=== PATIENT | male | born 1980 | race African-American/Black ===

== ENCOUNTER 2017-12-20 22:23 | Emergency (ER) | payer OTHER ==
[~2017-12-20] VITALS: Ht 177.8 cm; Wt 68.0 kg
[2017-12-20] MEDS ORDERED: BIKTARVY 50-201 EACH PO (22:32)
[2017-12-20 22:45] VITALS: BP 121/78
--- NOTE | 2017-12-20 22:53 | Emergency Room Report ---
History of Present Illness General Chief Complaint: Chest Pain Source: Patient Present Illness HPI Is a 37-year-old male with no significant past medical history. He presents with chief complaint of chest pain is been ongoing for 2-3 days. Achy pain in left chest area. Also with some mild jaw pain and numbness to his left hand. Nothing made it better. Nothing made it worse. He when he lays back he felt throbbing pulsation in his neck. No fever chills. No nausea no vomiting. No diaphoresis but no exertional component. Pain is 5 out of 10. No chronic history in the family. Allergies: Coded Allergies: No Known Allergies (Unverified , 12/20/17) Patient History Past Medical History: see triage record, old chart reviewed Past Surgical History: none Pertinent Family History: none Social History: Denies: smoking Immunizations: other Reviewed Nursing Documentation: PMH: Agreed; PSxH: Agreed Nursing Documentation-PMH Past Medical History: No History, Except For Review of Systems Eye: Denies: eye pain, blurred vision ENT: Denies: ear pain, nose congestion, throat swelling Respiratory: Denies: cough, shortness of breath Cardiovascular: Reports: chest pain; Denies: palpitations Gastrointestinal: Denies: abdominal pain, diarrhea, nausea, vomiting Musculoskeletal: Denies: back pain, joint pain Skin: Denies: rash Neurological: Denies: headache, numbness Endocrine: Denies: increased thirst, increased urine Hematologic/Lymphatic: Denies: easy bruising All Other Systems: negative except mentioned in HPI Physical Exam Vital Signs Date Time Temp Pulse Resp B/P (MAP) Pulse Ox O2 Delivery O2 Flow Rate FiO2 12/20/17 22:26 98.6 93 16 122/77 95 Room Air 98.6 vitals normal Sp02 EP Interpretation: reviewed, normal General Appearance: well appearing, no apparent distress, alert Head: normocephalic, atraumatic Eyes: bilateral eye PERRL, bilateral eye EOMI ENT: hearing grossly normal, normal pharynx Neck: full range of motion, supple, no meningismus Respiratory: chest non-tender, lungs clear, normal breath sounds Cardiovascular #1: regular rate, rhythm, no murmur Gastrointestinal: normal bowel sounds, non tender, no mass, no organomegaly, no bruit, non-distended Musculoskeletal: back normal, gait/station normal, normal range of motion Psychiatric: mood/affect normal Skin: warm/dry Medical Decision Making Diagnostic Impression: Primary Impression: Chest pain Qualified Codes: R07.9 - Chest pain, unspecified ER Course Patient present with atypical chest pain. No evidence of ACS, PE, dissection to name a few. Better after Toradol. This is most likely muscle skeletal in nature. We'll discharge home. EKG Diagnostic Results Rate: normal Rhythm: NSR ST Segments: other - nsst changes ASA given to the pt in ED: Yes Rhythm Strip Diag. Results Rhythm Strip Time: 22:52 EP Interpretation: yes Rate: 86 Rhythm: NSR, no PVC's, no ectopy Chest X-Ray Diagnostic Results Chest X-Ray Diagnostic Results : Chest X-Ray Ordered: Yes # of Views/Limited/Complete: 1 View Indication: Chest Pain EP Interpretation: Yes Interpretation: no consolidation, no effusion, no pneumothorax, no acute cardiopulmonary disease Impression: No acute disease Electronically Signed by: Arnold Ghosh MD Last Vital Signs Date Time Temp Pulse Resp B/P (MAP) Pulse Ox O2 Delivery O2 Flow Rate FiO2 12/20/17 22:26 98.6 93 16 122/77 95 Room Air 98.6 Status: improved Disposition: HOME, SELF-CARE Condition: Stable Scripts Ibuprofen* (MOTRIN*) 600 Mg Tablet 600 MG ORAL THREE TIMES A DAY, #30 TAB 0 Refills Prov: ARNOLD GHOSH M.D. 12/21/17 Patient Instructions: Nonspecific Chest Pain Additional Instructions: Follow-up with your DrAviva in 3-5 days. If continue with pain, you may need a referral to see a wet roller for chest testing. Return if symptom worsen. ARNOLD GHOSH M.D. Dec 20, 2017 22:52
[2017-12-20] MEDS ORDERED: Ketorolac 30mg Inj IV ONE (23:00)
[2017-12-20] MEDS ORDERED: Aspirin Baby 81mg ORAL ONE (23:00)
[2017-12-20 23:14] LABS: HEMATOCRIT 45.1 % (42.0-52.0); HEMOGLOBIN 16.4 G/DL (14.2-18.0); MEAN CORPUSCULAR VOLUME 98 FL (80-99); PLATELET COUNT 245 K/UL (150-450); RED BLOOD COUNT 4.59 M/UL (4.70-6.10); RED CELL DISTRIBUTION WIDTH 10.2 % (11.6-14.8)
[2017-12-20 23:27] LABS: ANION GAP 5 mmol/L (5-15); BLOOD UREA NITROGEN 18 mg/dL (7-18); CARBON DIOXIDE 31 MMOL/L (21-32); CHLORIDE 104 MMOL/L (98-107); CREATININE 1.4 MG/DL (0.55-1.30); POTASSIUM 3.7 MMOL/L (3.5-5.1); SODIUM 140 MMOL/L (136-145)
[2017-12-20 23:40] LABS: ALANINE AMINOTRANSFERASE 24 U/L (12-78); ALKALINE PHOSPHATASE 52 U/L (46-116); ASPARTATE AMINO TRANSFERASE 21 U/L (15-37); BILIRUBIN,TOTAL 1.2 MG/DL (0.2-1.0); CKMB 1.4 NG/ML (0.0-3.6); CREATINE KINASE 363 U/L (26-308)
[2017-12-21] MEDS ORDERED: IBUPROFEN600 MG ORAL (00:04)
[2017-12-21 00:10] LABS: BILIRUBIN,DIRECT 0.3 MG/DL (0.0-0.3)
[2017-12-21 00:15] VITALS: BP 125/85
--- NOTE | 2017-12-21 10:03 | Diagnostic Imaging Report ---
Indication: Chest pain Technique: XRAY Chest 1v Comparison: None Findings: Heart size and mediastinal contours are within normal limits. There is no focal consolidation, pneumothorax or pleural effusion. Osseous structures demonstrate no acute abnormality. Impression: No radiographic evidence of acute cardiopulmonary disease.
--- NOTE | 2017-12-21 16:02 | Cardiology Report ---
APPROVED REPORT EKG Measurement Heart [id number] Normal sinus rhythm Minimal voltage criteria for LVH, may be normal variant Borderline ECG
== END 2017-12-21 00:15 | disposition home or self-care (01) ==
LOC: EMR 22:57
DX: R07.9 Chest pain, unspecified (principal)
CPT/HCPCS: 36415; 71045; 80053; 82248; 82550; 82553; 84484; 85025; 93005; 99283; J1885